=== PATIENT | female | born 1985 | race African-American/Black ===

== ENCOUNTER 2018-07-22 05:39 | Outpatient (CLI) | payer MEDICAID ==
[~2018-07-22] VITALS: Ht 160 cm; Wt 71.8 kg
[2018-07-22 05:35] VITALS: BP 131/84
[2018-07-22 07:00] LABS: AMPHETAMINE SCREEN, URINE Negative (Negative); BARBITURATE SCREEN, URINE Negative (Negative); BENZODIAZEPINE SCREEN, URINE Negative (Negative); CANNABINOID SCREEN, URINE Positive (Negative); COCAINE SCREEN, URINE Negative (Negative); METHADONE SCREEN, URINE Negative (Negative); OPIATE SCREEN, URINE Negative (Negative)
[2018-07-22 07:01] LABS: MICROSCOPIC INDICATED
[2018-07-22] MEDS ORDERED: PREN1TAB10 PO (08:08)
== END 2018-07-22 09:25 | disposition home or self-care (01) ==
LOC: LDOP 05:39
PROVIDERS: ATTEND Obstetrics & Gynecology
DX: O26.893 Other specified pregnancy related conditions, third trimester (principal); R10.9 Unspecified abdominal pain; Z3A.32 32 weeks gestation of pregnancy
CPT/HCPCS: 36415; 59025; 80307; 81001; 82731; 87086; 99211; G0463

== ENCOUNTER 2019-03-17 19:11 | Observation (INO) | payer MEDICAID ==
[~2019-03-17] VITALS: Ht 160 cm; Wt 77.8 kg
[~2019-03-17 19:11] MED LIST: IBUP-1222 PO; PREN1TAB10 PO
[2019-03-17 19:51] LABS: BASOPHILS # (AUTO) 0.02 x10^3/uL (0-0.1); BASOPHILS % (AUTO) 0 % (0-1); EOSINOPHILS # (AUTO) 0.35 x10^3/uL (0-0.4); EOSINOPHILS % (AUTO) 4 % (1-7); LYMPHOCYTES # (AUTO) 3.09 x10^3/uL (1-3.4); LYMPHOCYTES % (AUTO) 33 % (22-44); MD NO; MEAN CORPUSCULAR HEMOGLOBIN 30.9 pg (27.0-34.8); MEAN CORPUSCULAR HGB CONC 33.7 g/dL (32.4-35.8); MEAN CORPUSCULAR VOLUME 91.6 fL (80-100); MEAN PLATELET VOLUME 8.5 fL (7.4-10.4); MONOCYTES # (AUTO) 0.63 x10^3/uL (0.2-0.8); MONOCYTES % (AUTO) 7 % (2-9); NEUTROPHILS # (AUTO) 5.35 x10^3/uL (1.8-6.8); NEUTROPHILS % (AUTO) 57 % (42-75); PLATELET COUNT 215 x10^3/uL (130-400); RED BLOOD COUNT 4.29 x10^6/uL (3.82-5.3); RED CELL DISTRIBUTION WIDTH 16.4 % (9.6-15.2)
--- NOTE | 2019-03-17 19:54 | NUR ---
first contact with pt. Pt states that she might be 8 weeks , has been having a lot of stress and spotting x 2 days. Pt states she had increased bleeding today while at work, "soaked through 2 panty-liners," pt c/o lower abd pain and right flank pain. Pt states this feels like her last miscarriage. pt's aox4. resps even and unlabored. bp/spo2 monitors in place. call light within reach. awaiting edmd assessment at this time.
[2019-03-17 20:01] LABS: CULTURE INDICATED? YES; MICROSCOPIC INDICATED
[2019-03-17] MEDS ORDERED: ACETAMINOPHEN 500 MG TABLET ONE (20:42)
--- NOTE | 2019-03-17 20:47 | NUR ---
PT MEDICATED PER EMAR FOR PAIN. PT TOLERATED WELL. PT'S AOX4. RESPS EVEN AND UNLABORED.
[2019-03-17] MEDS ORDERED: ACETAMINOPHEN 500 MG TABLET PO ONE (21:00)
[2019-03-17 21:43] VITALS: BP 125/80
[2019-03-17 21:53] VITALS: BP 115/89
--- NOTE | 2019-03-17 21:55 | NUR ---
PT GIVEN RHOGAM SHOT AT THIS TIME. PT TOLERATED WELL. PT'S AOX4. RESPS EVEN AND UNLABORED. THIS RN MONITORING PT AT THIS TIME.
[2019-03-17 21:59] VITALS: BP 125/72
--- NOTE | 2019-03-17 22:04 | NUR ---
report given to senior media buyer.
[2019-03-17] MEDS ORDERED: MISOPROSTOL 200 MCG TABLET ONE (22:16)
[2019-03-17] MEDS ORDERED: OXYTOCIN 10 UNITS/ML, 1ML ONE (22:16)
[2019-03-17] MEDS ORDERED: SILVER NITRATE STICK TP ONE (22:16)
[2019-03-17] MEDS ORDERED: METHYLERGONOVINE 0.2 MG/ML IM ONE (22:17)
[2019-03-17] MEDS ORDERED: FENTANYL PF 100 MCG/2ML ONE ×2 (22:24→23:18)
[2019-03-17] MEDS ORDERED: PROMETHAZINE 25 MG/ML, 1ML IV PRN (22:30)
[2019-03-17] MEDS ORDERED: METOPROLOL 1 MG/ML, 5ML IV PRN (22:30)
[2019-03-17] MEDS ORDERED: DIPHENHYDRAMINE 50 MG/ML, 1ML IVPush PRN (22:30)
[2019-03-17] MEDS ORDERED: HALOPERIDOL 5 MG/ML IV PRN (22:30)
[2019-03-17] MEDS ORDERED: hydrALAzine 20 MG/ML, 1ML IV PRN (22:30)
[2019-03-17] MEDS ORDERED: MORPHINE SULFATE 4 MG/ML, 1ML IVPush PRN (22:30)
[2019-03-17] MEDS ORDERED: FENTANYL PF 100 MCG/2ML IV PRN (22:30)
[2019-03-17] MEDS ORDERED: LABETALOL 5MG/ML, 20ML IV PRN (22:30)
[2019-03-17] MEDS ORDERED: OXYcodone 5 MG/5 ML ORAL.SOL UDC PO PRN ×2 (22:30→23:00)
[2019-03-17] MEDS ORDERED: MEPERIDINE/PF 25MG/0.5ML IVPush PRN (22:30)
[2019-03-17] MEDS ORDERED: PROCHLORPERAZINE 5 MG/ML, 2ML IV PRN (22:30)
[2019-03-17] MEDS ORDERED: HYDROmorphone 2 MG/ML, 1ML IVPush PRN ×2 (22:30→23:00)
[2019-03-17] MEDS ORDERED: MIDAZOLAM 1 MG/ML, 2ML ONE (22:36)
[2019-03-17] MEDS ORDERED: SUCCINYLCHOLINE 20 MG/ML, 10ML ONE (22:38)
[2019-03-17] MEDS ORDERED: CEFAZOLIN 1,000 MG ONE (22:38)
[2019-03-17] MEDS ORDERED: PROPOFOL 10 MG/ML, 20ML ONE (22:38)
[2019-03-17] MEDS ORDERED: LACTATED RINGERS 1,000 ML IV SCH (22:40)
[2019-03-17] MEDS ORDERED: IBUPROFEN 600 MG TABLET PO PRN (23:00)
[2019-03-17] MEDS ORDERED: OXYcodone 5 MG/5 ML ORAL.SOL UDC ONE (23:18)
[2019-03-17] MEDS ORDERED: ONDANSETRON 2MG/ML, 2ML ONE (23:20)
[2019-03-18] MEDS ORDERED: METHYLERGONOVINE 0.2 MG/ML IM ONE ×2 (00:08→00:30)
[2019-03-18] MEDS ORDERED: OXYC-302 PO (01:30)
[2019-03-18] MEDS ORDERED: IBUP200T49 PO (01:32)
[2019-03-18] MEDS ORDERED: ONDA4TAB7 PO (01:33)
[2019-03-18 01:50] VITALS: BP 142/87
== END 2019-03-18 02:30 | disposition home or self-care (01) ==
LOC: ED 21:24 → EDIP 22:06 → 4NOR 23:55
PROVIDERS: ADMIT Obstetrics & Gynecology; ATTEND Obstetrics & Gynecology
DX: O03.4 Incomplete spontaneous abortion without complication (principal); O46.91 Antepartum hemorrhage, unspecified, first trimester; Z3A.09 9 weeks gestation of pregnancy; Z79.899 Other long term (current) drug therapy
CPT/HCPCS: 36415; 59812; 76801; 81001; 84702; 85025; 86850; 86900; 87086; 88305; 93005; 99284; G0378; J0330; J0690; J2210; J2250; J2704; J2790; J3010; 84703; J2590